=== PATIENT | female | born 1955 | race Caucasian/White ===

== ENCOUNTER 2023-04-03 09:00 | Outpatient (AMB) | payer MEDICARE, SELFPAY ==
--- NOTE | 2023-04-03 09:08 | MHC.PC.OV ---
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 Post menopausal: No Patient : No Allergies No Known Allergies Allergy (Verified 04/03/23 09:58) Medication List - Last Reconciled 04/03/23 by Britta Rodriguez MD fluticasone propionate 50 mcg/actuation (Flonase Allergy Relief) 1 spray intranasal DAILY Tobacco use date assessed: 04/03/23 Fall risk assessment: No Falls in past year Last assessed Fall Risk: 04/03/23 Dental Screening Dental Screen Date: 04/03/23 Did you have a dental visit in the last 12 months?: Yes Did you have a dental problem in the last 6 months where you did not have access to dental care?: No Was dental information given to patient?: Patient has dentist 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 She goes to [facility] for her routine Pap and pelvic exam, currently up-to-date , and states that she is up-to-date with her screening mammogram. She however is due for bone densty scan . She goes to betty [facility] for her routine colon cancer screening, now due. Sees Dr. Amezcua, at [facility] for her routine skin exam, recently seen and had several facial skin lesions removed [facility] Medical History (Updated 04/03/23 @ 10:12 by Britta Rodriguez MD) History of toe fracture History of dislocation of toe Post-menopause Surgical History (Updated 04/03/23 @ 10:13 by Britta Rodriguez MD) History of toe surgery History of Family History (Updated 04/03/23 @ 10:14 by Britta Rodriguez MD) Father Facial basal cell cancer Mother Facial basal cell cancer Colon cancer Social History Housing: House Patient Tobacco Use Status: Former Tobacco user (40 years ago) e-Cigarette/Vaping Use: Never Used service: No Current occupational status: employed Cognitive needs: No Hearing needs: No Vision needs: Yes Female Reproductive History Menstrual Menopause type: natural Age of menopause: 43 Total pregnancies: 4 Other: She goes to [facility] for her mammogram Questionnaire PHQ-9 Over the last 2 weeks, how often have you been bothered by any of the following problems? 1. Little interest or pleasure in doing things: not at all 2. Feeling down, depressed, or hopeless: not at all 3. Trouble falling or staying asleep, or sleeping too much: not at all 4. Feeling tired or having little energy: not at all 5. Poor appetite or overeating: not at all 6. Feeling bad about yourself - or that you are a failure or have let yourself or your family down: not at all 7. Trouble concentrating on things, such as reading the newspaper or watching television: not at all 8. Moving or speaking so slowly that other people could have noticed. Or the opposite - being so fidgety or restless that you have been moving around a lot more than usual: not at all 9. Thoughts that you would be better off or of hurting yourself in some way: not at all Total score: 0 79715 - PHQ-9 Billing: Yes Source: Developed by Drs. Umesh Grijalva, Chen Padgett, Ernesto Christianson and colleagues, with an educational sera from [employer]. Thrive Questionnaire Date Thrive assessed: 04/03/23 I am a: Patient What is your living situation today?: I have a steady place to live Within the past 12 months, did the food you bought not last and you didn't have the money to get more?: Never true Within the past 12 months, did you worry whether your food would run out before you got money to buy more?: Never true Do you have trouble paying for medicines?: No Do you have trouble getting transportation to medical appointments?: No Do you have trouble paying your heating and electricity bill?: No Do you have trouble taking care of your child, family member or friend?: No Do you have trouble with day-to-day activities such as bathing, preparing meals, shopping, managing finances, etc.?: No Are you currently unemployed and looking for a job?: No Are you interested in more education?: No AUDIT C Alcohol Use Questionnaire (AUDIT-C) 1. How often do you have a drink containing alcohol?: Monthly or less 2. How many drinks containing alcohol do you have on a typical day when you are drinking?: 1 or 2 Total Score: 1 ERICKA-7 AMB Questionnaire ERICKA-7 Date ERICKA - 7 assessed: 04/03/23 Feeling nervous, anxious, or on edge: 0 = Not at all Not being able to stop or control worryin = Several days Worrying too much about different things: 1 = Several days Trouble relaxin = Several days Being so restless that it is hard to sit still: 0 = Not at all Becoming easily annoyed or irritable: 0 = Not at all Feeling afraid as if something awful might happen: 0 = Not at all Total ERICKA-7 score (0-4 normal; 5-9 mild; 10-14 moderate; 15-21 severe): 3 Source: Developed by Drs. Umesh Grijalva, Chen Padgett, Ernesto Christianson and colleagues, with an educational sera from [employer]. ERICKA-7 Assessment Billing ERICKA-7 Assessment Tool: ERICKA-7 Assessment 48241 Review of Systems Const Denies body aches, Denies fatigue, Denies fever(s), Denies headache(s) and Denies weakness Eyes Denies change in vision ENT Denies dizziness, Denies headache(s), Denies nasal congestion, Denies nasal discharge and Denies sore throat Card Denies chest pain, Denies lightheadedness, Denies palpitations and Denies dyspnea Resp Denies chest congestion, Denies cough, Denies dyspnea and Denies wheezing GI Denies abdominal pain, Denies change in bowel habits and Denies heartburn Denies hematuria, Denies urinary frequency, Denies dysuria and Denies urinary urgency Musc Reports no additional complaints Skin/Breast Details: Sees Dr. Amezcua at [facility] Denies breast pain, Denies breast mass, Denies lesions and Denies rash Neuro Denies dizziness, Denies headache(s) and Denies weakness Psych Reports no additional complaints Endo Denies fatigue, Denies polydipsia, Denies polyuria and Denies palpitations Crescencio/Lymph Denies easy bleeding and Denies easy bruising Aller/Immun Denies seasonal rhinorrhea and Denies wheezing Physical exam (Primary Care) Vital Signs: Last Vital Signs Pulse 84 04/03/23 09:17 BP 132/80 04/03/23 09:17 Pulse Ox 97 04/03/23 09:17 Oxygen Delivery Method Room Air 04/03/23 09:17 BMI result Body Mass Index 30.4 Tobacco/Smoking Status: Tobacco use Status Tobacco use date assessed 04/03/23 04/03/23 09:26 Patient Tobacco Use Status Former Tobacco user (40 04/03/23 09:55 years ago) e-Cigarette/Vaping Use Never Used 04/03/23 09:26 PHQ-9: PHQ-9 Score PHQ-9: Total score 0 04/05/23 18:12 Thrive Assessment: Date of Thrive Assessment Date Thrive assessed 04/03/23 04/03/23 09:26 Const General: no acute distress and alert Orientation/consciousness: patient oriented x3 HENMT Head: Yes normocephalic and Yes atraumatic Ears: external ears normal, TM's normal bilaterally and EAC's normal General nose exam: Normal external nose present and No nasal discharge present Face and sinus: Yes face symmetric Mouth: Normal oral and palatal mucosa present, lip normal, tongue normal, oropharynx normal and moist mucous membranes Eyes General: appearance normal, both eyes and all related structures Eyelids: Yes eyelids normal Conjunctivae: conjunctivae normal Sclerae: sclerae normal Pupils: Equal, round and reactive pupils present EOM: EOMs intact bilaterally Neck Neck: Yes full ROM, Yes no lymphadenopathy and Yes supple Thyroid: Thyroid normal Resp Effort & Inspection: normal respiratory effort and able to speak in complete sentences Auscultation: clear to auscultation bilaterally Cardio Rate: regular rate Rhythm: regular rhythm Heart sounds: S1 normal heart sound present and S2 normal heart sound present GI Palpation (GI): Soft to palpation, nontender, no guarding and no masses Auscultation: normal bowel sounds General: Yes no CVA tenderness and Yes deferred (Goes to [facility] for her routine Pap and pelvic exam) Back/Spine/Pelvis Back: no CVA tenderness and No back tenderness Skin Other: Mild erythema on forehead, and small scar on submental area where she had a skin biopsy done recently Neuro General: patient oriented x3, gait normal, moves all extremities, Normal light touch and pain sensation, no focal motor deficits and CN's II-XI intact bilaterally Cranial nerves: Yes Equal, round and reactive pupils present Cognition (Neuro): normal cognition Gait exam (Neuro): Normal gait present Motor exam (neuro): 5/5 motor strength present throughout Extrem General: Yes normal to inspection, Yes full ROM, Yes no joint enlargement, Yes no pedal edema and Yes normal gait Psych Appearance: grossly normal and well kempt Mental Status: mental status grossly normal Speech and movement: Normal speech and movement present Affect: normal affect Attitude: cooperative Thought process: Normal thought process present Thought content: Normal thought content present Assessment and Plan Assessment & Plan (1) Annual visit for general adult medical examination with abnormal findings: Code(s): Z00.01 - Encounter for general adult medical examination with abnormal findings Plan: Will check appropriate labs. Continue with regular dental visit every 6 months and regular eye exams, at least every 2 years. Take adequate calcium in diet and vitamin-D 3 at 2000 IU per cap once a day, in addition to weight-bearing exercises to help maintain good muscle tone and weight control. Continue to do self-breast exam, and get yearly mammogram, currently goes to [facility]. Bone density scan ordered for screening for osteoporosis.. Referred to Dr. Pastrana for her screening colonoscopy. (2) Post-menopause: Code(s): Z78.0 - Asymptomatic menopausal state Plan: Advised to take adequate calcium from dietary sources, take vitamin-D 3 at least 2000 units daily, continue doing regular weight-bearing exercise, bone density scan ordered today for osteoporosis screening (3) Colon cancer screening: Code(s): Z12.11 - Encounter for screening for malignant neoplasm of colon Plan: Referred to Dr. Pastrana for her screening colonoscopy Orders: Orders XR DEXA axial skeleton 04/03/23 Z00.01 - Encounter for general adult medical examination with abnormal findings, Z78.0 - Asymptomatic menopausal state Vitamin D 25-OH Total 04/03/23 Z00.01 - Encounter for general adult medical examination with abnormal findings, Z13.1 - Encounter for screening for diabetes mellitus, Z13.220 - Encounter for screening for lipoid disorders, Z78.0 - Asymptomatic menopausal state Complete Blood Count Auto Diff 04/03/23 Z00.01 - Encounter for general adult medical examination with abnormal findings, Z13.1 - Encounter for screening for diabetes mellitus, Z13.220 - Encounter for screening for lipoid disorders, Z78.0 - Asymptomatic menopausal state Basic Metabolic Panel Fasting 04/03/23 Z00.01 - Encounter for general adult medical examination with abnormal findings, Z13.1 - Encounter for screening for diabetes mellitus, Z13.220 - Encounter for screening for lipoid disorders, Z78.0 - Asymptomatic menopausal state Lipid Panel 04/03/23 Z00.01 - Encounter for general adult medical examination with abnormal findings, Z13.1 - Encounter for screening for diabetes mellitus, Z13.220 - Encounter for screening for lipoid disorders, Z78.0 - Asymptomatic menopausal state Referrals Gastroenterology Referral Z00.01 - Encounter for general adult medical examination with abnormal findings, Z12.11 - Encounter for screening for malignant neoplasm of colon Coding Level of Care Code New Pt Prev Care >65yr (83183) Diagnoses Annual visit for general adult medical examination with abnormal findings Z00.01 Post-menopause Z78.0 Colon cancer screening Z12.11 Additional Codes ERICKA-7 Assessment Billing - ERICKA-7 Assessment Tool: ERICKA-7 Assessment 32474 ([id number])
[2023-04-03 09:17] VITALS: BP 132/80; PULSE 84; O2SAT 97; BMI 30.4
== END 2023-04-03 10:28 | disposition home or self-care (01) ==
PROVIDERS: PCP Internal Medicine; Visit Provider Internal Medicine
DX: Z00.01 Encounter for general adult medical examination with abnormal findings (principal); Z78.0 Asymptomatic menopausal state; Z12.11 Encounter for screening for malignant neoplasm of colon
CPT/HCPCS: 99387

== ENCOUNTER 2023-04-03 10:39 | Outpatient (REF) | payer BC, SELFPAY ==
[2023-04-03 15:37] LABS: Anion Gap 16 (12-20); Blood Urea Nitrogen 10 mg/dL (9-16); Calcium 9.1 mg/dL (8.4-10.2); Carbon Dioxide 25 mmol/L (22-29); Chloride 106 mmol/L (96-108); Cholesterol 199 mg/dL (<200); Estimated Glomerular Filt Rate > 60; Glucose Fasting 89 mg/dL (60-99); HDL Cholesterol 81 mg/dL (>40); LDL Cholesterol Calculated 103 mg/dL (<100); Potassium 3.9 mmol/L (3.3-5.1); Sodium 143 mmol/L (135-145); Triglycerides 78 mg/dL (<150); Vitamin D 25-OH Total 26.4 ng/mL (>30)
== END 2023-04-03 10:40 | disposition home or self-care (01) ==
LOC: HO.HMGCLDS 10:39
PROVIDERS: PCP Internal Medicine; Visit Provider Internal Medicine
DX: Z00.01 Encounter for general adult medical examination with abnormal findings (principal); Z13.220 Encounter for screening for lipoid disorders; Z13.1 Encounter for screening for diabetes mellitus; Z78.0 Asymptomatic menopausal state
CPT/HCPCS: 36415; 80048; 80061; 82306; 85025

== ENCOUNTER 2023-04-16 09:34 | Outpatient (REF) | payer MEDICARE, SELFPAY ==
--- NOTE | ~2023-04-16 | MM_ITS ---
EXAMINATION: BONE DENSITOMETRY CLINICAL INDICATION: Asymptomatic menopausal state. COMPARISON: This is the patient's baseline examination. TECHNIQUE: Using a [employer] DXA System (software version: 13.1) manufactured by [employer], dual-energy x-ray absorptiometry was performed of the lumbar spine and left hip. The images are of good technical quality. Summary results are attached. FINDINGS: AP SPINE L1-L4: BMD 1.345 g/cm2, Z-score 2.7, T-score 1.4, normal. LEFT FEMUR, NECK: BMD 0.835 g/cm2, Z-score 0.0, T-score -1.5, osteopenia. LEFT FEMUR, TOTAL: BMD 0.958 g/cm2, Z-score 0.8, T-score -0.4, normal. IDENTIFIED RISK FACTORS: Secondary osteoporosis (early menopause). HISTORY OF FRACTURE: None listed. MEDICATIONS: Calcium supplement and/or multivitamin. Vitamin D. MM/XR DEXA axial skeleton IMPRESSION: 1. DIAGNOSIS: Osteopenia based on the lowest T-score value of -1.5 in the femoral neck applying World Health Organization criteria. 2. 10-YEAR FRACTURE RISK PREDICTION, FRAX: Major osteoporotic fracture (clinical spine, forearm, hip or shoulder) 9.5%. Hip fracture 1.3%. 3. Treatment Recommendations: NOF guidelines recommend consideration for treatment in postmenopausal women and men age 50 and older presenting with the following: -A hip or vertebral (clinical or morphometric) fracture. -T-score less than or equal to -2.5 at the femoral neck or spine after appropriate evaluation to exclude secondary causes. -Low bone mass at the hip or spine and a 10-year fracture probability by FRAX of greater than or equal to 3% for hip fracture or greater than or equal to 20% for major osteoporotic fracture based on the [place] adapted WHO algorithm. 4. Other Recommendations: All treatment decisions require clinical judgment and consideration of individual patient factors, including patient preferences, comorbidities, previous drug use, risk factors not captured in the FRAX model (e.g. frailty, falls, vitamin D deficiency, increased bone turnover, interval significant decline in bone density) and possible under or overestimation of fracture risk by FRAX. Additional medical evaluation for secondary cause of low bone mineral density may be appropriate. FUTURE SCAN RECOMMENDATION: People with diagnosed cases of osteoporosis or at high risk for fracture should have regular bone mineral density tests. For patients eligible for Medicare, routine testing is allowed once every 2 years. The testing frequency can be increased to one year for patients who have rapidly progressing disease, those who are receiving or discontinuing medical therapy to restore bone mass, or have additional risk factors.
== END 2023-04-16 09:35 | disposition home or self-care (01) ==
LOC: HO.MAMMO 09:34
PROVIDERS: Visit Provider Internal Medicine
DX: Z13.820 Encounter for screening for osteoporosis (principal); Z78.0 Asymptomatic menopausal state
CPT/HCPCS: 77080

== ENCOUNTER 2023-12-02 07:07 | Day surgery (SDC) | payer MEDICARE, SELFPAY ==
[2023-11-30 14:26] VITALS: BMI 28.9
[2023-12-02 07:44] VITALS: BMI 28.8
[2023-12-02 08:00] VITALS: BP 177/70; PULSE 75; RESP 16; TEMP 36.3; O2SAT 97
[2023-12-02] MEDS: Lactated Ringers 1,000 ML 100 ML IVCONT (08:18)
--- NOTE | 2023-12-02 08:37 | P.CONAN_ITS ---
HPI - Anesthesia Eval Consult details Narrative: 68 yo F presenting for colonoscopy [facility] Active Problems Active Problems: All Active Problems Post-menopause (Acute) Past Medical History Medical History (Updated 04/13/23 @ 12:01 by Hayley Nunez) History of toe fracture History of dislocation of toe Post-menopause Family History Family History (System 04/13/23 @ 12:01 by Hayley Nunez) Father Facial basal cell cancer Mother Facial basal cell cancer Colon cancer Family history of problems with anesthesia: No Surgical History Surgical History (Updated 11/30/23 @ 14:26 by Carey Benitez RN) Hx of laparoscopy Hx of tonsillectomy H/O colonoscopy History of toe surgery History of History of Problems with Anesthesia: No Social History Social History (System 04/13/23 @ 12:01 by Hayley Nunez) Housing: House Patient Tobacco Use Status: Former Tobacco user e-Cigarette/Vaping Use: Never Used Use of substances other than those prescribed or required for medical reasons: No Are you DNR?: No Advance Directives: No Advance Directives Information Provided: Yes service: No Current occupational status: employed Cognitive needs: No Hearing needs: No Vision needs: Yes Meds Allergies Allergy/AdvReac Type Severity Reaction Status Date / Time No Known Allergies Allergy Verified 04/13/23 12:01 Active Medications: Current Medications Lactated Ringer's (Lr) 1,000 mls @ 100 mls/hr IVCONT .Q10H PHIL Last Admin: 12/02/23 08:18 Dose: 100 mls/hr Sodium Biphosphate/Sodium Phosphate (Sodium Phosphate,[place]-Dibasic 133 Ml Enema) 133 ml NV ONCE PRN PRN Reason: Poor Colonoscopy Prep Results Home Medications ?Medication ?Instructions ?Recorded ?Confirmed ?Last Taken ?Type fluticasone propionate 50 1 spray intranasal DAILY 04/03/23 04/03/23 Unknown History mcg/actuation nasal spray,suspension (Flonase Allergy Relief) Exam Exam Date and Time: December 02, 2023 0830 Height,Weight and Vital Signs: Height 5 ft 3.5 in Weight 74.899 kg Last Vital Signs Temp 97.4 F 12/02/23 08:00 Pulse 75 12/02/23 08:00 Resp 16 12/02/23 08:00 BP 177/70 H 12/02/23 08:00 Pulse Ox 97 12/02/23 08:00 O2 Del Method Room Air 12/02/23 08:00 Airway Mallampati Class: II TM Dist: >3cm Neck ROM: Full Loose/Missing/Broken Teeth: No Heart: S1S2 Lungs: CTAB Assessment and Plan Assessment Anesthesia Assessment: Anesthesia Plan Discussed and Chart Reviewed Final Anesthetic Review Family History of Problems with Anesthesia: No History of Problems with Anesthesia: No NPO: Yes ASA Class: I Final Preanesthetic Review: No Changes in Pt Med Stat, Meds/Allgs Chart Reviewed, Consent Obtained/Reviewed and Anes Risks/Benef Reviewed Patient Risk: Low Procedure Risk: Low Anesthetic Plan Anesthetic Plan: MAC: and Agree w/ Assess. and Plan Disposition: Standard PACU
[2023-12-02 09:27] VITALS: BP 138/89; PULSE 91; RESP 16; TEMP 36.1; O2SAT 98
--- NOTE | 2023-12-02 09:27 | PM.OP ---
Brief Operative Note Date of Service: 12/02/23 Pre-op diagnosis: Screening Post-op diagnosis: other (Diverticulosis) Procedure: Colonoscopy to the cecum Surgeon: Umesh Pastrana MD Anesthesia: MAC Was an Respite Provider used for this Procedure?: No Estimated blood loss (mL): 0 Pathology: none sent Condition: stable Disposition: PACU
[2023-12-02 09:42] VITALS: BP 139/71; PULSE 66; RESP 16; TEMP 36.1; O2SAT 97
--- NOTE | 2023-12-02 09:57 | OP_ITS ---
DATE OF SERVICE: 12/02/2023 SURGEON: Umesh Pastrana MD INDICATIONS: The patient presents for evaluation of colorectal cancer screening. Full consent has been obtained from her for this, including risks of bleeding and perforation. PREOPERATIVE DIAGNOSIS: Colorectal cancer screening. POSTOPERATIVE DIAGNOSIS: PROCEDURE PERFORMED: Colonoscopy to the cecum. ESTIMATED BLOOD LOSS: COMPLICATIONS: ANESTHESIA: Monitored anesthesia care. ASSISTANTS: SPECIMENS: POSTOPERATIVE DIAGNOSES: Colorectal cancer screening, diverticulosis, and internal hemorrhoids. DESCRIPTION OF PROCEDURE: The patient was placed in the left lateral decubitus position. The digital rectal exam revealed no abnormalities. The Olympus video pediatric colonoscope was then entered into the rectum and advanced easily to the cecum. Once in the cecum, I did identify normal-appearing cecal pouch with appendiceal orifice and a normal-appearing ileocecal valve. The entire cecum and ileocecal valve appeared normal. There was transillumination of light deep in the right lower quadrant. The scope was slowly withdrawn assessing all mucosal surfaces carefully. Preparation was excellent. I did not visualize any sign of polyps, colitis, nor angiodysplasias. Some moderate amount of sigmoid diverticulosis. In the rectum, scope was retroflexed, visualizing internal hemorrhoids, but no other pathology. The rectal mucosa appeared normal. The scope was straightened and withdrawn from the patient. She tolerated the procedure well and was returned to the recovery area in stable condition. IMPRESSION: 1. Diverticulosis. 2. Internal hemorrhoids. PLAN: Given today's negative exam, 2 previous negative colonoscopies as well, and her age, I do not think she will need any further screening colonoscopies going forward. She will see me on a p.r.n. basis. MD MARCIA Villatoro/DENIS / [phone]
--- NOTE | 2023-12-03 06:26 | PC.NURSE ---
24hr update documented in paper chart.
--- OUTSIDE RECORDS SUMMARY | 2023-12-04 10:09 | XMS_ITS | Continuity of Care Document ---
Author Organization [facility] Address [address] [place] [address]- Care Team Providers Care Tours Captain Name Role Phone Not on Staff, PCP Primary Care Physician Unavail able Encounter 09/30/23 - 11/05/23 [facility] [address], [address] [place] [address]- Attending Physician: Birtta Rodriguez MD Admitting Physician: Britta Rodriguez MD Referring Physician: Britta Rodriguez MD Patient Care team information Care Team Personnel Name: Not on Staff, PCP Position: S Physician (General Medicine) Member Role: PCP
--- OUTSIDE RECORDS SUMMARY | 2023-12-04 10:09 | XMS_ITS | Continuity of Care Document ---
Author Organization [facility] [place] [place] Address [address] [place] [address]- Care Team Providers Care Rn Chronic Name Role Phone Not on Staff, PCP Primary Care Physician Unavail able Encounter 08/08/22 - 08/15/22 [facility] RADIOLOG[facility] AND [facility] [place] [place] [address], [address] [place] [address]- [place] Attending Physician: Jana Bacon MD Admitting Physician: Jana Bacon MD Referring Physician: Jana Bacon MD Results Radiology Reports * Exam Date Time Procedure Performing Provider Status 08/08/22 3:08 PM MM Digital Mammo Screening Terir Argueta; Auth (Verified) Notes: (MM Digital Mammo Screening) Reason For Exam: Z12.31 ROUTINE SCREENING RESULT: MM Digital Mammo Screening PROCEDURE: MM Digital Mammo Screening INDICATION: Screening for breast cancer. No known palpable abnormalities. COMPARISON: Multiple priors, the most recent 07/22/2021 TECHNIQUE: Full-field digital CC and MLO 3D tomosynthesis images of both breasts were acquired. Computer-aided detection (CAD) was utilized in the interpretation of this study. DENSITY: The breast tissue contains scattered areas of fibroglandular density. FINDINGS: No suspicious masses, suspicious microcalcifications, or areas of architectural distortion are seen in either breast to suggest malignancy. IMPRESSION: No mammographic evidence of malignancy. RECOMMENDATION: Routine mammographic screening BI-RADS: 1 (Negative) Lay letter mailed to patient WSN: [id number] Ordering Physician: Jana Bacon Dictated By: Robbi Noriega MD Dictated Date/Time: 08/08/22 5:19 pm Reviewed By: Robbi Noriega MD Signed By: Robbi Noriega MD Signed Date/Time: 08/08/22 5:19 pm Transcribed By: ACE Linoleum Layer Apprentice Date/Time: 08/08/22 5:17 pm Birads: MG Breast Screening * BHSPowerscribe , CIS S: TRANSCRIBE Robbi Noriega MD: VERIFY Event Display: Result: Authored Date: [id number] PROCEDURE: MM Digital Mammo Screening INDICATION: Screening for breast cancer. No known palpable abnormalities. COMPARISON: Multiple priors, the most recent 07/22/2021 TECHNIQUE: Full-field digital CC and MLO 3D tomosynthesis images of both breasts were acquired. Computer-aided detection (CAD) was utilized in the interpretation of this study. DENSITY: The breast tissue contains scattered areas of fibroglandular density. FINDINGS: No suspicious masses, suspicious microcalcifications, or areas of architectural distortion are seen in either breast to suggest malignancy. IMPRESSION: No mammographic evidence of malignancy. RECOMMENDATION: Routine mammographic screening BI-RADS: 1 (Negative) Lay letter mailed to patient WSN: [id number] Ordering Physician: Jana Bacon Dictated By: Robbi Noriega MD Dictated Date/Time: 08/08/22 5:19 pm Reviewed By: Robbi Noriega MD Signed By: Robbi Noriega MD Signed Date/Time: 08/08/22 5:19 pm Transcribed By: ACE Linoleum Layer Apprentice Date/Time: 08/08/22 5:17 pm Birads: Patient Care team information Care Team Personnel Name: Not on Staff, PCP Position: S Physician (General Medicine) Member Role: PCP
--- OUTSIDE RECORDS SUMMARY | 2023-12-04 10:09 | XMS_ITS | Continuity of Care Document ---
Author Organization [facility] RADIOLOG[facility] [place] [facility] [place] Address [address], [address] [place] [address]- Care Team Providers Care Box Blank Machine Feeder Name Role Phone Not on Staff, PCP Primary Care Physician Unavail able Encounter 07/22/21 - 07/29/21 [facility] RADIOLOG[facility] AND IMAGING [address], [address] [place] [address]- Attending Physician: Jana Bacon MD Admitting Physician: Jana Bacon MD Referring Physician: Jana Bacon MD
== END 2023-12-02 10:36 | disposition home or self-care (01) ==
PROVIDERS: PCP Internal Medicine; Visit Provider Internal Medicine
PROC: 0DJD8ZZ Inspection of Lower Intestinal Tract, Via Natural or Artificial Opening Endoscopic (ICD-10-PCS; CPT 45378; principal; 2023-12-02 08:30)
DX: Z12.11 Encounter for screening for malignant neoplasm of colon (principal); K57.30 Diverticulosis of large intestine without perforation or abscess without bleeding; K64.8 Other hemorrhoids; Z80.0 Family history of malignant neoplasm of digestive organs
CPT/HCPCS: G0105; J2704

== ENCOUNTER 2024-03-24 09:08 | Outpatient (AMB) | payer MEDICARE, SELFPAY ==
--- NOTE | 2024-03-24 09:18 | A.OFFPC_ITS ---
Vital Signs 03/24/24 09:19 Height 5 ft 3.5 in Weight 166 lb BMI 28.9 BP 140/90 H Blood Pressure Location Lt brachial Position Sitting Pulse 69 Pulse Source Pulse Oximeter Pulse Oximetry (%) 95 Oxygen Delivery Method Room Air Intake Visit Reasons: Regular Visit Intake Note: Pt is here today c/o vaginal itch and irritation Allergies No Known Allergies Allergy (Verified 03/27/24 16:28) Medication List - Last Reconciled 03/27/24 by Britta Rodriguez MD clobetasol 0.05% topical estradiol (Yuvafem) 10 mcg vaginal 2XW 30 days fluticasone propionate 50 mcg/actuation (Flonase Allergy Relief) 1 spray intranasal DAILY roflumilast 0.3% (Zoryve) appl topical BID Tobacco use date assessed: 03/24/24 Fall risk assessment: No Falls in past year Last assessed Fall Risk: 03/24/24 Dental Screening Dental Screen Date: 03/24/24 Did you have a dental visit in the last 12 months?: Yes Did you have a dental problem in the last 6 months where you did not have access to dental care?: Yes Was dental information given to patient?: Patient has dentist HPI Regular Visit HPI Details 68-year-old lady here today complaining of recurrent vaginal itching, and swelling in her labia which has been present now for the last several weeks. Patient states that she was on you have a fem before prescribed by her OBGYN but has been out of this medication for a while. Denies any abnormal vaginal discharge, no other complaints at present time [facility] History Psoriasis Scalp psoriasis History of toe fracture History of dislocation of toe Post-menopause Surgical History Hx of laparoscopy Hx of tonsillectomy H/O colonoscopy History of toe surgery History of Family History Father Facial basal cell cancer Mother Facial basal cell cancer Colon cancer Social History Housing: House Patient Tobacco Use Status: Former Tobacco user e-Cigarette/Vaping Use: Never Used service: No Current occupational status: employed Cognitive needs: No Hearing needs: No Vision needs: Yes Questionnaire PHQ-9 Over the last 2 weeks, how often have you been bothered by any of the following problems? 1. Little interest or pleasure in doing things: not at all 2. Feeling down, depressed, or hopeless: not at all 3. Trouble falling or staying asleep, or sleeping too much: not at all 4. Feeling tired or having little energy: not at all 5. Poor appetite or overeating: not at all 6. Feeling bad about yourself - or that you are a failure or have let yourself or your family down: not at all 7. Trouble concentrating on things, such as reading the newspaper or watching television: not at all 8. Moving or speaking so slowly that other people could have noticed. Or the opposite - being so fidgety or restless that you have been moving around a lot more than usual: not at all 9. Thoughts that you would be better off or of hurting yourself in some way: not at all Total score: 0 Depression Screening Interpretation: Negative Depression Screening Done: Yes 22338 - PHQ-9 Billing: Yes Source: Developed by Drs. Umesh Grijalva, Chen Padgett, Ernesto Christianson and colleagues, with an educational sera from [employer]. Thrive Questionnaire Date Thrive assessed: 03/24/24 I am a: Patient What is your living situation today?: I have a steady place to live Within the past 12 months, did the food you bought not last and you didn't have the money to get more?: Never true Within the past 12 months, did you worry whether your food would run out before you got money to buy more?: Never true Do you have trouble paying for medicines?: No Do you have trouble getting transportation to medical appointments?: No Do you have trouble paying your heating and electricity bill?: No Do you have trouble taking care of your child, family member or friend?: No Do you have trouble with day-to-day activities such as bathing, preparing meals, shopping, managing finances, etc.?: No Are you interested in more education?: No Please select the resources that you would like help with: None Currently or been in a relationship where the following occur: No concerns reported THRIVE Score: 0 AUDIT C Alcohol Use Questionnaire (AUDIT-C) 1. How often do you have a drink containing alcohol?: 4 or more times a week 2. How many drinks containing alcohol do you have on a typical day when you are drinking?: 1 or 2 3. How often do you have six or more drinks on one occasion?: Never Total Score: 4 ERICKA-7 AMB Questionnaire ERICKA-7 Date ERICKA - 7 assessed: 03/24/24 Feeling nervous, anxious, or on edge: 0 = Not at all Not being able to stop or control worryin = Not at all Worrying too much about different things: 0 = Not at all Trouble relaxin = Not at all Being so restless that it is hard to sit still: 0 = Not at all Becoming easily annoyed or irritable: 0 = Not at all Feeling afraid as if something awful might happen: 0 = Not at all Total ERICKA-7 score (0-4 normal; 5-9 mild; 10-14 moderate; 15-21 severe): 0 Source: Developed by Drs. Umesh Grijalva, Chen Padgett, Ernesto Christianson and colleagues, with an educational sera from [employer]. ERICKA-7 Assessment Billing ERICKA-7 Assessment Tool: ERICKA-7 Assessment 33018 Review of Systems Const All systems reviewed & are unremarkable except as noted in HPI and below Physical exam (Primary Care) Vital Signs: Last Vital Signs Pulse 69 03/24/24 09:19 BP 140/90 H 03/24/24 09:19 Pulse Ox 95 03/24/24 09:19 Oxygen Delivery Method Room Air 03/24/24 09:19 BMI result Body Mass Index 28.9 Tobacco/Smoking Status: Tobacco use Status Tobacco use date assessed 03/24/24 03/24/24 09:25 Patient Tobacco Use Status Former Tobacco user 03/24/24 09:25 e-Cigarette/Vaping Use Never Used 03/24/24 09:25 PHQ-9: PHQ-9 Score PHQ-9: Total score 0 03/24/24 10:10 Depression Screening Interpretation: Negative Thrive Assessment: Date of Thrive Assessment Date Thrive assessed 03/24/24 03/24/24 09:25 Currently or been in a relationship where the following occur: No concerns reported Const General: comfortable and no acute distress Orientation/consciousness: patient oriented x3 Other: Unable to inserts speculum and vaginal canal due to small opening General: Yes no CVA tenderness External Female Exam: normal appearance of the urethra, erythema (Bilateral labia) and external swelling (On labia bilateral) Back/Spine/Pelvis Back: no CVA tenderness Neuro General: patient oriented x3 Assessment and Plan Assessment & Plan (1) Pruritus of vagina: Code(s): N89.8 - Other specified noninflammatory disorders of vagina Plan: Prescription sent for you have a fem 10 mcg, 2 insert vaginally twice a week directed Orders: Orders Vitamin D 25-OH Total 03/24/24 Z13.1 - Encounter for screening for diabetes mellitus, Z13.220 - Encounter for screening for lipoid disorders, Z78.0 - Asymptomatic menopausal state Glucose Fasting 03/24/24 N89.8 - Other specified noninflammatory disorders of vagina, Z13.1 - Encounter for screening for diabetes mellitus, Z13.220 - Encounter for screening for lipoid disorders, Z78.0 - Asymptomatic menopausal state Lipid Panel 03/24/24 N89.8 - Other specified noninflammatory disorders of vagina, Z13.1 - Encounter for screening for diabetes mellitus, Z13.220 - Encounter for screening for lipoid disorders, Z78.0 - Asymptomatic menopausal state Medications: New estradiol (Yuvafem) 10 mcg vaginal 2XW 9 tabs 3RF 30 days Coding Level of Care Code Est Pt Level 3 (83845) Diagnoses Pruritus of vagina N89.8 Additional Codes ERICKA-7 Assessment Billing - ERICKA-7 Assessment Tool: ERICKA-7 Assessment 06619 ([id number])
[2024-03-24 09:19] VITALS: BP 140/90; PULSE 69; O2SAT 95; BMI 28.9
== END 2024-03-24 11:31 | disposition home or self-care (01) ==
PROVIDERS: PCP Internal Medicine; Visit Provider Internal Medicine
DX: N89.8 Other specified noninflammatory disorders of vagina (principal)

== ENCOUNTER → 2024-03-24 09:08 | Outpatient (BNVA) | payer MEDICARE, SELFPAY | PROVIDERS: PCP Internal Medicine; Visit Provider Internal Medicine | DX: N89.8 Other specified noninflammatory disorders of vagina (principal) | CPT/HCPCS: 96127; 99212 ==

== ENCOUNTER 2024-05-31 10:48 | Outpatient (REF) | payer MEDICARE, SELFPAY ==
[2024-05-31 15:20] LABS: Cholesterol 244 mg/dL (<200); Glucose Fasting 98 mg/dL (60-99); HDL Cholesterol 100 mg/dL (>40); LDL Cholesterol Calculated 127 mg/dL (<100); Triglycerides 88 mg/dL (<150); Vitamin D 25-OH Total 44.8 ng/mL (>30)
== END 2024-05-31 10:49 | disposition home or self-care (01) ==
LOC: HO.HMGCLDS 10:48
PROVIDERS: PCP Internal Medicine; Visit Provider Internal Medicine
DX: Z78.0 Asymptomatic menopausal state (principal); Z13.220 Encounter for screening for lipoid disorders; Z13.1 Encounter for screening for diabetes mellitus; N89.8 Other specified noninflammatory disorders of vagina
CPT/HCPCS: 36415; 80061; 82306; 82947

== ENCOUNTER 2024-06-01 11:53 | Outpatient (AMB) | payer MEDICARE, SELFPAY ==
[2024-06-01 12:11] VITALS: BP 144/80; PULSE 81; O2SAT 97; BMI 29.6
--- NOTE | 2024-06-01 12:11 | MHC.PC.OV ---
Vital Signs 06/01/24 12:11 Height 5 ft 3.5 in Weight 170 lb BMI 29.6 BP 144/80 H Blood Pressure Location Rt brachial Position Sitting Pulse 81 Pulse Source Pulse Oximeter Pulse Oximetry (%) 97 Oxygen Delivery Method Room Air Intake Visit Reasons: PE per Dr. Nuñez Intake Note: Pt is here today for her PE: last mammogram 01/07/24, bone density scan 04/16/23, colonoscopy 12/02/23 Allergies No Known Allergies Allergy (Verified 06/01/24 12:27) Medication List - Last Reconciled 06/01/24 by Britta Rodriguez MD clobetasol 0.05% topical estradiol (Yuvafem) 10 mcg vaginal 2XW 30 days fluticasone propionate 50 mcg/actuation (Flonase Allergy Relief) 1 spray intranasal DAILY roflumilast 0.3% (Zoryve) appl topical BID Tobacco use date assessed: 06/01/24 Fall risk assessment: No Falls in past year Last assessed Fall Risk: 06/01/24 Dental Screening Dental Screen Date: 06/01/24 Did you have a dental visit in the last 12 months?: No Did you have a dental problem in the last 6 months where you did not have access to dental care?: No Was dental information given to patient?: Patient has dentist HPI PE per Dr. Nuñez HPI Details The patient is a 68-year-old female presenting with an annual exam and . She has psoriasis and still complains of menopausal symptoms. Psoriasis primarily affects her scalp, and she is under the care of Dr. Amezcua for routine screening and management without recent detection of skin cancer. The patient reports a history of essential hypertension with current blood pressure elevated at 144 mmHg systolic, though she is not on antihypertensive medication. She uses clobetasol and Roflumilast for psoriasis. Additionally, she has been using Yuvafem vaginal tablets for menopausal symptoms but reports persistent itching and requests an alternative. The patient denies any history of breast cancer. She underwent a bone density scan last year, revealing osteopenia in the left hip, and plans to reassess in 2024. She mentioned a history of scoliosis discovered later in life, and a wrist fracture from a skiing accident in her 20s. - Mammogram up to date, next due in December of next year. - Fully vaccinated for shingles. - Pneumonia vaccination status uncertain; potential need to confirm after age 65. - Recently performed bone density scan showing normal spine and thigh, with osteopenia in the left hip. - Routine flu shots; received locations not updated in medical records. - Considers RSV vaccination unnecessary due to lack of comorbidities and prior health status. - History of three COVID-19 vaccinations, with no history of COVID illness. PFSH Medical History (Updated 06/01/24 @ 12:55 by Britta Rodriguez MD) Vaginal pruritus Osteopenia of left femoral neck Psoriasis Scalp psoriasis History of toe fracture History of dislocation of toe Post-menopause Surgical History Hx of laparoscopy Hx of tonsillectomy H/O colonoscopy History of toe surgery History of Family History Father Facial basal cell cancer Mother Facial basal cell cancer Colon cancer Social History Housing: House Patient Tobacco Use Status: Former Tobacco user e-Cigarette/Vaping Use: Never Used service: No Current occupational status: employed Cognitive needs: No Hearing needs: No Vision needs: Yes Questionnaire PHQ-9 Over the last 2 weeks, how often have you been bothered by any of the following problems? Depression Screening Interpretation: Negative Depression Screening Done: Yes Source: Developed by Drs. Umesh Grijalva, Chen Padgett, Ernesto Christianson and colleagues, with an educational sera from [employer]. Thrive Questionnaire Date Thrive assessed: 03/24/24 I am a: Patient What is your living situation today?: I have a steady place to live Within the past 12 months, did the food you bought not last and you didn't have the money to get more?: Never true Within the past 12 months, did you worry whether your food would run out before you got money to buy more?: Never true Do you have trouble paying for medicines?: No Do you have trouble getting transportation to medical appointments?: No Do you have trouble paying your heating and electricity bill?: No Do you have trouble taking care of your child, family member or friend?: No Do you have trouble with day-to-day activities such as bathing, preparing meals, shopping, managing finances, etc.?: No Are you currently unemployed and looking for a job?: No Are you interested in more education?: No Please select the resources that you would like help with: None Currently or been in a relationship where the following occur: No concerns reported THRIVE Score: 0 AUDIT C Alcohol Use Questionnaire (AUDIT-C) 1. How often do you have a drink containing alcohol?: 4 or more times a week 2. How many drinks containing alcohol do you have on a typical day when you are drinking?: 1 or 2 3. How often do you have six or more drinks on one occasion?: Never Total Score: 4 ERICKA-7 AMB Questionnaire ERICKA-7 Date ERICKA - 7 assessed: 03/24/24 Source: Developed by Drs. Umesh Grijalva, Chen Padgett, Ernesto Christianson and colleagues, with an educational sera from [employer]. Review of Systems Const Denies body aches, Denies difficulty sleeping, Denies fatigue, Denies fever(s), Denies headache(s), Denies lethargy and Denies weakness Eyes Denies change in vision, Denies eye discharge and Denies itchy eyes ENT Denies dizziness, Denies headache(s), Denies nasal congestion, Denies nasal discharge and Denies sore throat Card Denies chest pain, Denies lightheadedness, Denies palpitations and Denies dyspnea Resp Denies chest congestion, Denies cough, Denies dyspnea and Denies wheezing GI Denies abdominal pain, Denies change in bowel habits and Denies heartburn Denies hematuria, Denies urinary frequency, Denies dysuria and Denies urinary urgency Musc Reports no additional complaints Skin/Breast Denies breast pain, Denies breast mass, Denies lesions and Denies rash Neuro Denies dizziness, Denies headache(s) and Denies weakness Psych Reports no additional complaints Endo Denies fatigue, Denies polydipsia, Denies polyuria and Denies palpitations Crescencio/Lymph Denies easy bruising Aller/Immun Denies itchy eyes, Denies seasonal rhinorrhea and Denies wheezing Physical exam (Primary Care) Vital Signs: Last Vital Signs Pulse 81 06/01/24 12:11 BP 144/80 H 06/01/24 12:11 Pulse Ox 97 06/01/24 12:11 Oxygen Delivery Method Room Air 06/01/24 12:11 BMI result Body Mass Index 29.6 Tobacco/Smoking Status: Tobacco use Status Tobacco use date assessed 06/01/24 06/01/24 12:14 Patient Tobacco Use Status Former Tobacco user 06/01/24 12:14 e-Cigarette/Vaping Use Never Used 06/01/24 12:14 Depression Screening Interpretation: Negative Thrive Assessment: Date of Thrive Assessment Date Thrive assessed 03/24/24 06/01/24 12:14 Currently or been in a relationship where the following occur: No concerns reported Advance Care Planning discussion: Completed/Scanned Date of discussion: 06/01/24 Who was present: Patient Forms completed: Health Care Proxy Time spent: 16-45 minutes Actual minutes spent: 2 Const General: comfortable and no acute distress Orientation/consciousness: patient oriented x3 HENMT Head: Yes normocephalic Ears: external ears normal General nose exam: Normal external nose present Face and sinus: Yes sinuses nontender and Yes face symmetric Mouth: Normal oral and palatal mucosa present, oropharynx normal and moist mucous membranes Eyes General: appearance normal, both eyes and all related structures Neck Neck: Yes full ROM, Yes no lymphadenopathy and Yes supple Chest Breast/axilla inspection: normal inspection of the breasts Breast/axilla palpation: normal palpation of the breasts Resp Effort & Inspection: normal respiratory effort and able to speak in complete sentences Auscultation: clear to auscultation bilaterally Cardio Rate: regular rate Rhythm: regular rhythm Heart sounds: S1 normal heart sound present and S2 normal heart sound present Bruits: no abdominal aortic bruits GI Inspection: Yes normal to inspection Palpation (GI): No Abdominal aortic bruit present, Soft to palpation, nontender, no guarding and no masses General: Yes no CVA tenderness Back/Spine/Pelvis Back: no CVA tenderness Skin General skin exam: no rashes or lesions noted Neuro General: patient oriented x3, gait normal, tone normal, moves all extremities and no focal motor deficits Extrem General: Yes full ROM, Yes no joint enlargement, Yes no pedal edema and Yes normal gait Psych Appearance: grossly normal and well kempt Speech and movement: Normal speech and movement present Affect: normal affect Attitude: cooperative Thought process: Normal thought process present Results Reviewed Results Reviewed: Name: Lenore Gibson Age/Sex: 68/F : 1955 Unit#: [id number] Attend Dr: Britta Rodriguez MD Re05/31/24 Status: DEP REF Location: [facility] Disch: SPEC : [id number] QUYEN: 05/31/24 STATUS: COMP REQ : [id number] RECD: 05/31/[address]: Britta Rodriguez MD COMP: 05/31/24 ENTERED: 05/31/[address]: ORDERED: Glu Fasting, Lipid Panel, Vitamin D 25-OH Test Result Flag Reference FBS 98 60-99 mg/dL Triglyceride 88 <150 mg/dL Desirable Triglyceride: less than 150 mg/dL Borderline High Triglyceride 150-199 mg/dL High Triglyceride: 200-499 mg/dL Very High Triglyceride: greater than or equal to 5OO mg/dL Cholesterol 244 H <200 mg/dL Desirable Cholesterol: less than 200 mg/dL Borderline High Cholesterol: 200-239 mg/dL High Cholesterol: greater than 239 mg/dL LDL Calculated 127 H <100 mg/dL Desirable LDL: less than 100 mg/dL Near Optimal/Above Optimal LDL: 110-129 mg/dL Borderline High LDL: 130-159 mg/dL High LDL: 160-189 mg/dL Very High LDL: greater than or equal to 190 mg/dL HDL 100 >40 mg/dL Desirable HDL: greater than 40 mg/dL Note: This HDL assay may give artificially low results in patients with liver disease. Vit D 25-OH Tot 44.8 >30 ng/mL Health Based Reference Values* < 20 ng/mL Deficient 20-30 ng/mL Insufficient > 30 ng/mL Sufficient Coding Level of Care Code Est Pt Prev Care >65y(11746) Diagnoses Annual visit for general adult medical examination with abnormal findings Z00.01 Post-menopause Z78.0 Osteopenia of left femoral neck M85.852 Vaginal pruritus N89.8 Psoriasis L40.9 Scalp psoriasis L40.9 Advanced directives, counseling/discussion Z71.89 Additional Codes Vital Signs *Quality* - Advance Care Planning discussion: Completed/Scanned ([id number]) Vital Signs *Quality* - Time spent: 16-45 minutes ([id number]) Assessment & Plan Assessment & Plan (1) Annual visit for general adult medical examination with abnormal findings: Code(s): Z00.01 - Encounter for general adult medical examination with abnormal findings (2) Post-menopause: Code(s): Z78.0 - Asymptomatic menopausal state Category: Medical (3) Osteopenia of left femoral neck: Code(s): M85.852 - Other specified disorders of bone density and structure, left thigh Category: Medical (4) Vaginal pruritus: Code(s): N89.8 - Other specified noninflammatory disorders of vagina Category: Medical (5) Psoriasis: Comment: On left elbow, sees Dr. Amezcua Code(s): L40.9 - Psoriasis, unspecified Category: Medical (6) Scalp psoriasis: Comment: She sees Dr. Ken Amezcua Code(s): L40.9 - Psoriasis, unspecified Category: Medical (7) Advanced directives, counseling/discussion: Code(s): Z71.89 - Other specified counseling Plan: Initiated the conversation about Advanced Directives. Advanced Directives help patients prepare for current and future decisions about their medical treatment and place of care. Discussed with patient that it is a process where a patients current condition and prognosis are reviewed, their wishes for information regarding their illness are elicited, and likely medical dilemmas are presented and options discussed. Healthcare proxy form completed today. The form can be amended as needed, reviewed yearly and make changes as needed Plan During the consultation, we reviewed the patient?s current management for psoriasis and agreed to continue the topical regimen with clobetasol and Roflumilast. For menopausal symptoms, I suggested switching to a more potent estradiol cream, which the patient agreed to try. We discussed the importance of maintaining blood pressure below 130/90 mmHg and addressed dietary changes to lower cholesterol levels, given the recent increase. We reviewed her bone density results and scheduled a follow-up in 2024, emphasizing the importance of monitoring osteopenia to prevent progression to osteoporosis. I outlined the need for continued health maintenance, including arranging for flu shot documentation and evaluating possible pneumococcal vaccination records. - Start using the estradiol cream as prescribed and discontinue the current formulation. - Implement dietary changes to include low-saturated fat options to manage cholesterol. - Monitor blood pressure at home and report readings above 130/90 mmHg. - Continue with the current psoriasis medications and appointments with Dr. Hylton. - Schedule a follow-up mammogram for December of next year and coordinate OBGYN consult for post-menopausal management in July. - Ensure all vaccinations are up to date; confirm pneumococcal status with previous provider records. Patient was informed and verbally consented to the use of an ambient scribe for clinic note documentation during this visit. 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
== END 2024-06-01 14:49 | disposition home or self-care (01) ==
PROVIDERS: PCP Internal Medicine; Visit Provider Internal Medicine
DX: Z00.01 Encounter for general adult medical examination with abnormal findings (principal); Z78.0 Asymptomatic menopausal state; M85.852 Other specified disorders of bone density and structure, left thigh; N89.8 Other specified noninflammatory disorders of vagina; L40.9 Psoriasis, unspecified; Z71.89 Other specified counseling

== ENCOUNTER → 2024-06-01 11:53 | Outpatient (BNVA) | payer MEDICARE, SELFPAY | PROVIDERS: PCP Internal Medicine; Visit Provider Internal Medicine | DX: Z00.01 Encounter for general adult medical examination with abnormal findings (principal); M85.852 Other specified disorders of bone density and structure, left thigh; N89.8 Other specified noninflammatory disorders of vagina; L40.9 Psoriasis, unspecified; Z71.89 Other specified counseling; Z78.0 Asymptomatic menopausal state | CPT/HCPCS: 99397; 99497 ==

== ENCOUNTER 2025-05-23 10:19 | Outpatient (REF) | payer MEDICARE, SELFPAY ==
--- OUTSIDE RECORDS SUMMARY | 2023-12-02 03:30 | XMS_ITS ---
Author Organization [facility] Address [address] [place] [address] Care Team Providers Care Clearance Diver Name Role Phone Jennifer VICTOR, Britta Primary Care Provider Umesh Barrientos [phone] REASON FOR VISIT screening Problems Problem Type SNOMED Code ICD Code Onset Dates Problem Status W/U Status Risk Notes Problem Diverticular disease of colon ([id number]) Diverticulosis of large intestine without perforation or abscess without bleeding (K57.30) Active confirmed Encounters Encounter Location Date Provider Diagnosis [facility] Outpatient [address] [place] [address] [phone] 12/02/2023 Umesh Pastrana Encounter for scre ening colonoscopy Z12.11 ; Diverticulosis of large intestine without perforation or abscess without bleeding K57.30 and Internal hemorrhoids K64.8 Assessments Encounter Date Diagnosis (ICD Code) Assessment Notes Treatment Notes Treatment Clinical Notes Section Notes 12/02/2023 Encounter for screening colonoscopy (ICD-10 - Z12.11) 12/02/2023 Diverticulosis of large intestine without perforation or abscess without bleeding (ICD-10 - K57.30) 12/02/2023 Internal hemorrhoids (ICD-10 - K64.8) Plan Of Treatment No Information Progress Notes * ZOILA LARSONENDOB:0 1955 (69 yo F)Acc No.[id number]:12/02/2023 COLON WITH MAC Patient: Pamela GRIJALVA GIFTY HILL Provider: Asia Pastrana MD :1955 A ge:68 Y S ex:Female Date:12/02/2023 Address:[address] [place] [address], [phone] Pcp:Britta Rodriguez MD Subjective: * Chief Complaints: * S creening Assessment: * Assessment: 1. E ncounter for screening colonoscopy - Z12.11 (Primary) 2 . D iverticulosis of large intestine without perforation or abscess without bleeding - K57.30 3 .?Internal hemorrhoids - K64.8 Plan: * Procedure Codes: G 0121 COLOREC CNCR SCR;COLNSCPY NO HI [id number] INTRVL 3+YRS PTS CLNSCP DOCD, Modifiers: 8P 0528F RCMND FLW-UP 10 YRS DOCD, Modifiers: 1P Billing Information: * Procedure Codes: G0121 COLOREC CNCR SCR;COLNSCPY NO HI RSK. 0529F INTRVL 3+YRS PTS CLNSCP DOCD. Modifiers: 8P 0528F RCMND FLW-UP 10 YRS DOCD. Modifiers: 1P * The named appointment provid er may or may not be the originator of this progress note, and it is not deemed complete until electronically signed by the appointment provider. Sign off status: Pending * Provider: Asia Pastrana MD Date: 0 12/02/2023 Generated for Surekha jimenez/Darryl/Steveitting on: 07/23/2024 12:42 PM EST
--- NOTE | ~2025-05-23 | MM_ITS ---
EXAMINATION: DXA BONE DENSITY AXIAL HISTORY: Z78.0 - Asymptomatic menopausal state TECHNIQUE: Virtualmin Dual energy absorptiometry (DEXA) of the lumbar spine, total left hip, and femoral neck was performed. COMPARISON: Comparison is made with the prior examination dated 04/16/2023. FINDINGS: The bone mineral density of the lumbar spine is 1.324 g/cm2, corresponding to a T-score of 1.2, and a Z-score of 2.5. This is indicative of normal bone mineral density. This represents a BMD change of -1.6% compared to the prior exam. This is not statistically significant. The bone mineral density of the left total hip is 0.900 g/cm2, corresponding to a T-score of -0.9, and a Z-score of 0.4. This is indicative of normal bone mineral density. This represents a BMD change of -6.1% compared to the prior exam. This is statistically significant. The bone mineral density of the left femoral neck is 0.758 g/cm2, corresponding to a T-score of -2.0, and a Z-score of 0.5. This is indicative of osteopenia. This represents a BMD change of -9.2% compared to the prior exam. FRACTURE RISK: The FRAX index suggests a ten year probability of major osteoporotic fracture of 12.1%, and of hip fracture 2.5%. MM/XR DEXA axial skeleton IMPRESSION: Based on bone mineral density, and according to World Health Organization (WHO) criteria, the diagnosis is consistent with osteopenia. Statistically, 68% of repeat scans fall within 1 SD (+/- 0.010 g/cm2 for AP spine L1-L4) and 1 SD (+/- 0.012 g/cm2 for femur total) FRAX is a trademark of the [employer]'s [employer] [facility] Met[employer], a World Health Organization (WHO) Collaborating Center. Electronically signed by: Umesh Ken MD 05/23/2025 10:46 AM [facility]
--- OUTSIDE RECORDS SUMMARY | 2025-05-23 12:42 | XMS_ITS | Patient Health Record ---
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 Section Notes: Nonsmoker; 2 drinks daily Nonsmoker; 2 drinks daily Problems Problem Type SNOMED Code ICD Code Onset Dates Problem Status W/U Status Risk Notes Problem Colon cancer screening (939643903) Colon cancer screening (Z12.11) Active confirmed Problem Pre-procedure evaluation check (321772164) Encounter for other preprocedural examination (Z01.818) Active confirmed Problem Diverticular disease of colon (563095988) Diverticulosis of large intestine without perforation or abscess without bleeding (K57.30) Active confirmed Plan Of Treatment Future Test Test Name Order Date COLONOSCOPY 06/30/2013 COLONOSCOPY 08/26/2023 Insurance Providers Payer Name Payer Address Payer Phone Subscriber Number Group Number Insured Name Patient Relationship to Insured Coverage Start Date Coverage End Date [facility] [address] [place], [place] [id number] [phone] [id number] GIFTY LARSON Self - patient is the insured Medical (General) History Medical History History ICD Code Colonoscopy 04/21/2003--hyperplastic tray yp only Denies NE,DM,CVA,Lung disease,renal dise ase Negative colonoscopy in 08/2013 Surgical History Surgery Date(Month/Year) x 2 Tonsillectomy 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
--- OUTSIDE RECORDS SUMMARY | 2025-05-23 12:42 | XMS_ITS | Clinical Summary ---
Author Organization [employer] Address [address] [place] [address] [address] [place] [address] Care Team Providers Care Instrument Repairer Name Role Phone Unavailable Primary Care Provider Unavailabl e Social History Tobacco Use Types Packs/Day Years Used Date Smoking Tobacco: Never Assessed Comments Unknown Sex and Gender Information Value Date Recorded Sex Assigned at Not on file Legal Sex Female 8:36 PM EDT Gender Identity Not on file Sexual Orientation Not on file Plan of Treatment Health Maintenance Due Date Last Done Comments CT Colonography 1955 Depression Screening 1955 FIT DNA/Cologuard 1955 FIT 1955 FOBT 1955 Sigmoidoscopy 1955 Alcohol/Substance Use Screening 1965 Tobacco Screening 1967 Pneumococcal Vaccine: 50+ Years (2 of 2 - PCV) 04/23/2019 04/23/2018 Colonoscopy 09/01/2023 08/31/2013 Colorectal Cancer Screening 09/01/2023 Mammogram 08/08/2024 08/08/2022 COVID-19 Vaccine ( - 2024-2 6 season) 2025 Influenza Vaccine (#1) 2025 04/23/2018 DTaP/Tdap/Td Vaccines (2 - T d or Tdap) 04/23/2028 04/23/2018 RSV Patients and Patients Aged 60 years or older (1 - 1-dose 75+ series) 2028 Zoster Vaccines Completed 12/14/2018, 08/28/2018 HIB Vaccines Aged Out No longer eligi ble based on patient's age to complete this topic HPV Vaccines Aged Out No longer eligi ble based on patient's age to complete this topic Hepatitis A Vaccines Aged Out No long er eligible based on patient's age to complete this topic Hepatitis B Vaccines Aged Out No long er eligible based on patient's age to complete this topic IPV Vaccines Aged Out No longer eligi ble based on patient's age to complete this topic Meningococcal B Vaccine Aged Out No l onger eligible based on patient's age to complete this topic Meningococcal Vaccine Aged Out No ambrosio hilda eligible based on patient's age to complete this topic RSV under 20 months Aged Out No longe r eligible based on patient's age to complete this topic Rotavirus Vaccines Aged Out No longer eligible based on patient's age to complete this topic Procedures Procedure Name Priority Date/Time Associated Diagnosis Comments BI MAMMOGRAM SCREENING TOMOSYNTHESIS BILATERAL Routine 08/08/2022 2:57 PM EST COLONOSCOPY Routine 08/31/2013 12:00 AM EST from Last 3 Months or Most Recently Relevant to Health Maintenance Results * BI Mammogram Screening Tomosynthesis Bilateral (08/08/2022 2:57 PM EST) Anatomical Region Laterality Modality Breast Bilateral Mammography 08/08/2022 2:57 PM EST Narrative 08/08/2022 5:22 PM EST PROCEDURE: MM Digital Mammo Screening INDICATION: Screening [...] (Negative) Lay letter mailed to patient WSN: [id number] Ordering Physician: Jana Bacon Dictated By: Robbi Noriega MD Dictated Date/Time: 08/08/22 5:19 pm Reviewed By: Robbi Noriega MD Signed By: Robbi Noriega MD Signed Date/Time: 08/08/22 5:19 pm Transcribed By: ACE Airplane And Engine Inspector Date/Time: 08/08/22 5:17 pm Birads: Procedure Note Donotuseinterpreter, Image - 08/08/2022 PROCEDURE: MM Digital Mammo Screening INDICATION: Screening for breast cancer. No known palpableabnormalities. COMPARISON: Multiple priors, the most recent 07/22/2021 TECHNIQUE: Full-field digital CC and MLO 3D tomosynthesis images of bothbreasts were acquired. Computer-aided detection (CAD) was utilized in theinterpretation of this study. DENSITY: The breast tissue contains scattered areas of fibroglandulardensity. FINDINGS: No suspicious masses, suspicious microcalcifications, or areasof architectural distortion are seen in either breast to suggestmalignancy. IMPRESSION: No mammographic evidence of malignancy. RECOMMENDATION: Routine mammographic screening BI-RADS: 1 (Negative) Lay letter mailed to patient WSN: [id number] Ordering Physician: Jana Bacon Dictated By: Robbi Noriega MD Dictated Date/Time: 08/08/22 5:19 pm Reviewed By: Robbi Noriega MD Signed By: Robbi Noriega MD Signed Date/Time: 08/08/22 5:19 pm Transcribed By: ACE Airplane And Engine Inspector Date/Time: 08/08/22 5:17 pm Birads: us Jana Bacon MD IMG BI PROCEDURES Final Result * COLONOSCOPY: [facility] (08/31/2013 12:00 AM EST) Anatomical Region Laterality Modality Endoscopy 08/31/2013 Narrative 08/31/2013 12:00 AM EST Refer to Fovea for result details Legacy Procedure: COLONOSCOPY: [facility] Procedure Note Provider, MD Maribeth - 10/23/2022 Refer to Fovea for result details Legacy Procedure: COLONOSCOPY: [facility] GASTRO[facility]OLOG[facility] us Historical Provider ENDOSCOPY PROCEDURE ORDER TARUN Final Result from Last 3 Months or Most Recently Relevant to Health Maintenance
== END 2025-05-23 10:20 | disposition home or self-care (01) ==
LOC: HO.MAMMO 10:19
PROVIDERS: PCP Internal Medicine; Visit Provider Internal Medicine
DX: M85.852 Other specified disorders of bone density and structure, left thigh (principal); Z78.0 Asymptomatic menopausal state
CPT/HCPCS: 77080

== ENCOUNTER → 2025-05-23 10:30 | Outpatient (BNV) | payer MEDICARE, SELFPAY | PROVIDERS: PCP Internal Medicine; Visit Provider Radiology Diagnostic Radiology | DX: E28.39 Other primary ovarian failure (principal) | CPT/HCPCS: 77080 ==

== ENCOUNTER 2025-06-12 10:15 | Outpatient (AMB) | payer MEDICARE, SELFPAY ==
--- NOTE | 2025-06-12 10:22 | MHC.PC.OV ---
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 Allergies No Known Allergies Allergy (Verified 06/12/25 10:55) Medication List - Last Reconciled 06/12/25 by Britta Rodriguez MD clobetasol 0.05% topical estradiol insert 1 - 10 mcg insert vaginally once daily for 2 weeks;then 1 - 10 mcg insert vaginally twice WEEKLY (every 3-4 days/same days each week) vaginal fluticasone propionate 50 mcg/actuation (Flonase Allergy Relief) 1 spray intranasal DAILY roflumilast 0.3% (Zoryve) appl topical BID triamcinolone acetonide 0.1% 1 appl topical DAILY Tobacco use date assessed: 06/12/25 Fall risk assessment: No Falls in past year Last assessed Fall Risk: 06/12/25 Dental Screening Dental Screen Date: 06/12/25 Did you have a dental visit in the last 12 months?: Yes Did you have a dental problem in the last 6 months where you did not have access to dental care?: No Was dental information given to patient?: Patient has dentist HPI PE HPI Details 69-year-old lady presents today for physical exam. She has history of psoriasis currently followed by Dr. Ken Amezcua, currently using Zoryve solution , and clobetasol 0.05% for scalp lesions . She has osteopenia left femoral neck as noted on last bone density scan done this year. No history of fractures . Takes vitamin D3 2000 units daily. She reports a burning pain in her left hip for the past two months, which disturbs her sleep as she typically sleeps on her left side, and can sometimes catch while walking. She denied any specific inciting event, recent long plane rides, or radiation of pain down the leg. She has tried [id number] medications like Aleve, Advil, and Tylenol without significant relief. Her blood pressure has been running high recently, noted at 138/89 previously. She has a family history of hypertension from both parents. Denies any headache, no chest pain or lightheadedness. Last cholesterol check in 2022 showed an increase in total cholesterol from 199 to 244 and LDL from 103 to 127. She is up-to-date with her screening colonoscopy had it done last year with no polyps seen, has been advised that she does not need another procedure done. However, her mother of colon cancer at age 84, and the patient would like still to have another colonoscopy in 9 years, at age 78. She has a family history of thyroid disease but no family history of diabetes. She has had vaccines for shingles and pneumonia. She declines the RSV vaccine. [facility] Medical History (Updated 06/12/25 @ 11:19 by Britta Rodriguez MD) Left hip pain Essential hypertension Dyslipidemia Vaginal pruritus Osteopenia of left femoral neck Psoriasis Scalp psoriasis History of toe fracture History of dislocation of toe Post-menopause Surgical History Hx of laparoscopy Hx of tonsillectomy H/O colonoscopy History of toe surgery History of Family History Father Facial basal cell cancer Mother Facial basal cell cancer Colon cancer Social History Housing: House Patient Tobacco Use Status: Former Tobacco user e-Cigarette/Vaping Use: Never Used service: No Current occupational status: employed Cognitive needs: No Hearing needs: No Vision needs: Yes Female Reproductive History Menstrual Other: sees Carol Ann Wright at [facility] in [place] , had pap done this year per pt Questionnaire PHQ-9 Over the last 2 weeks, how often have you been bothered by any of the following problems? 1. Little interest or pleasure in doing things: not at all 2. Feeling down, depressed, or hopeless: not at all 3. Trouble falling or staying asleep, or sleeping too much: not at all 4. Feeling tired or having little energy: not at all 5. Poor appetite or overeating: not at all 6. Feeling bad about yourself - or that you are a failure or have let yourself or your family down: not at all 7. Trouble concentrating on things, such as reading the newspaper or watching television: not at all 8. Moving or speaking so slowly that other people could have noticed. Or the opposite - being so fidgety or restless that you have been moving around a lot more than usual: not at all 9. Thoughts that you would be better off or of hurting yourself in some way: not at all Total score: 0 Depression Screening Interpretation: Negative Depression Screening Done: Yes 76629 - PHQ-9 Billing: Yes Source: Developed by Drs. Umesh Grijalva, Chen Padgett, Ernesto Christianson and colleagues, with an educational sera from [employer]. Thrive Questionnaire Date Thrive assessed: 06/12/25 I am a: Patient What is your living situation today?: I have a steady place to live Within the past 12 months, did the food you bought not last and you didn't have the money to get more?: Never true Within the past 12 months, did you worry whether your food would run out before you got money to buy more?: Never true Do you have trouble paying for medicines?: No Do you have trouble getting transportation to medical appointments?: No Do you have trouble paying your heating and electricity bill?: No Do you have trouble taking care of your child, family member or friend?: No Do you have trouble with day-to-day activities such as bathing, preparing meals, shopping, managing finances, etc.?: No Are you currently unemployed and looking for a job?: No Are you interested in more education?: No Please select the resources that you would like help with: None Currently or been in a relationship where the following occur: No concerns reported THRIVE Score: 0 AUDIT C Alcohol Use Questionnaire (AUDIT-C) 1. How often do you have a drink containing alcohol?: 4 or more times a week 2. How many drinks containing alcohol do you have on a typical day when you are drinking?: 1 or 2 3. How often do you have six or more drinks on one occasion?: Never Total Score: 4 Score Reviewed/Action Taken: Yes ERICKA-7 AMB Questionnaire ERICKA-7 Date ERICKA - 7 assessed: 06/12/25 Feeling nervous, anxious, or on edge: 0 = Not at all Not being able to stop or control worryin = Not at all Worrying too much about different things: 0 = Not at all Trouble relaxin = Not at all Being so restless that it is hard to sit still: 0 = Not at all Becoming easily annoyed or irritable: 0 = Not at all Feeling afraid as if something awful might happen: 0 = Not at all Total ERICKA-7 score (0-4 normal; 5-9 mild; 10-14 moderate; 15-21 severe): 0 Source: Developed by Drs. Umesh Grijalva, Chen Padgett, Ernesto Christianson and colleagues, with an educational sera from [employer]. ERICKA-7 Assessment Billing ERICKA-7 Assessment Tool: ERICKA-7 Assessment 69657 Review of Systems Narrative Review of Systems - General: Reports weight gain. - Cardiovascular: Denies chest pain. - Musculoskeletal: Reports a burning pain in the left hip for a couple of months, aggravated by lying on her left side and occasionally catching with walking. She can squat, bend, and play golf. - Neurological: Denies headache and lightheadedness or dizziness. - Integumentary: Reports an itchy rash with welts on an extremity for two weeks, which is now improving. Denies burning. History of psoriasis and a vaginal condition that was treated with clobetasol. Denies any rash on the trunk. - Gastrointestinal: Reports occasional heartburn. Denies abdominal pain. - Genitourinary: Denies urinary leakage. Constitution Reports no additional complaints Eyes no change in vision ENT Reports no additional complaints, Denies dysphagia and Denies odynophagia Cardiology Reports no additional complaints Respiratory Reports no additional complaints GI Denies abdominal pain, Denies belching, Denies melena, Denies bloating, Denies change in bowel habits, Denies dysphagia, Denies excessive flatus, Denies dyspepsia, Denies heartburn, Denies diarrhea, Denies loose stools, Denies nausea, Denies odynophagia and Denies vomiting Reports no additional complaints. sees Carol Ann Wright at [facility] in [place] , had pap done this year per pt Muscular no additional complaints Skin/Breast Denies breast swelling, Denies breast pain, Denies breast mass and Denies rash Neurology Reports no additional complaints Psychiatry Reports no additional complaints Endocrine Reports no additional complaints Crescencio/Lymph Reports no additional complaints Aller/Immun Reports no additional complaints Physical exam (Primary Care) Vital Signs: Last Vital Signs Temp 98.6 F 06/12/25 10:33 Pulse 75 06/12/25 10:33 Resp 16 06/12/25 10:33 BP 160/90 H 06/12/25 10:33 Pulse Ox 97 06/12/25 10:33 Oxygen Delivery Method Room Air 06/12/25 10:33 BMI result Body Mass Index 31.6 Tobacco/Smoking Status: Tobacco use Status Tobacco use date assessed 06/12/25 06/12/25 10:24 Patient Tobacco Use Status Former Tobacco user 06/12/25 10:24 e-Cigarette/Vaping Use Never Used 06/12/25 10:24 PHQ-9: PHQ-9 Score PHQ-9: Total score 0 06/12/25 11:24 Depression Screening Interpretation: Negative Thrive Assessment: Date of Thrive Assessment Date Thrive assessed 06/12/25 06/12/25 10:24 Currently or been in a relationship where the following occur: No concerns reported Narrative Physical Exam - Vital Signs: Blood pressure 160/90 mmHg initially, and 170/90 on recheck. - Cardiovascular: Regular rate, regular rhythm, S1/S2 heard, no murmurs noted on auscultation. - Respiratory: Lungs are clear to auscultation bilaterally. - Abdomen: Nontender to palpation throughout. - Musculoskeletal: No tenderness in knees. Left hip exam reveals tenderness to palpation with pressure during flexion maneuver. - Skin: Examination reveals two raised welts and spots on one extremity. No rash present on the trunk. Const General: comfortable, no acute distress, alert and well groomed Orientation/consciousness: patient oriented x3 [facility] Head: Yes normocephalic Ears: hearing grossly normal bilaterally, external ears normal, TM's normal bilaterally and EAC's normal General nose exam: Normal external nose present Face and sinus: Yes face symmetric Mouth: Normal oral and palatal mucosa present and moist mucous membranes Eyes General: appearance normal, both eyes and all related structures Neck Neck: Yes full ROM, Yes no lymphadenopathy and Yes supple Thyroid: Thyroid normal (Nonpalpable) Chest Breast/axilla palpation: normal palpation of the breasts General: Yes no CVA tenderness Back/Spine/Pelvis Back: no CVA tenderness and No back tenderness Neuro General: patient oriented x3, gait normal, moves all extremities and no focal motor deficits Extrem General: Yes full ROM, Yes no joint enlargement, Yes no pedal edema and Yes normal gait Psych Appearance: well kempt Mental Status: mental status grossly normal Speech and movement: Normal speech and movement present Affect: normal affect Coding Level of Care Code Est Pt Prev Care >65y(96788) Diagnoses Annual visit for general adult medical examination with abnormal findings Z00.01 Scalp psoriasis L40.9 Psoriasis L40.9 Osteopenia of left femoral neck M85.852 Dyslipidemia E78.5 Essential hypertension I10 Left hip pain M25.552 Additional Codes ERICKA-7 Assessment Billing - ERICKA-7 Assessment Tool: ERICKA-7 Assessment 76927 ([id number]) PHQ-9 - 65235 - PHQ-9 Billing: Yes ([id number]) Assessment & Plan Assessment & Plan (1) Annual visit for general adult medical examination with abnormal findings: Code(s): Z00.01 - Encounter for general adult medical examination with abnormal findings Plan: Her last lipid panel a year ago showed elevated total and LDL cholesterol. She has also gained weight. Comprehensive lab work will be ordered, including a fasting lipid panel, CBC, complete metabolic panel, vitamin D, and TSH, to be performed one week after starting lisinopril. The patient is fasting today, but labs are deferred to monitor the effect of the new medication. She will continue her vitamin D 2,000 units daily. Results of her recent Pap smear will be requested from her [employer] provider. A follow-up bone density scan is due in two years. Discussion was held regarding her family history of colon cancer, and she will proceed with a colonoscopy at age 78. Reminded to get her COVID booster and flu vaccine, up-to-date with her shingles vaccination declined pneumonia vaccine at present (2) Scalp psoriasis: Comment: She sees Dr. Ken Amezcua Code(s): L40.9 - Psoriasis, unspecified Category: Medical Plan: Followed by Dr. Amezcua using clobetasol and Zoryve solution (3) Psoriasis: Comment: On left elbow, sees Dr. Amezcua Code(s): L40.9 - Psoriasis, unspecified Category: Medical Plan: Followed by Dr. Amezcua, on Zoryve solution (4) Osteopenia of left femoral neck: Code(s): M85.852 - Other specified disorders of bone density and structure, left thigh Category: Medical Plan: Can taking vitamin-D 3 supplements and take adequate calcium from dietary sources. Do regular weight-bearing exercise, repeat another bone density scan in 2 years (5) Dyslipidemia: Code(s): E78.5 - Hyperlipidemia, unspecified Category: Medical Plan: Continue with vitamin-D 3 supplements and adequate calcium from dietary sources, repeat bone density scan to be done in 2 years (6) Essential hypertension: Code(s): I10 - Essential (primary) hypertension Category: Medical Plan: Her blood pressure is significantly elevated at 160/90 mmHg and 170 mmHg on recheck. Given the persistent elevation and family history, initiation of antihypertensive therapy is warranted. Will start lisinopril 5 mg daily. The patient was counseled on potential side effects, such as a dry cough or rash, and instructed to stop the medication if they occur. Recommended a low-salt diet. A nurse visit is scheduled in two weeks for a blood pressure check. Lab work, including kidney function and electrolytes, will be done one week after starting lisinopril. (7) Left hip pain: Code(s): M25.552 - Pain in left hip Category: Medical Plan: The patient presents with a two-month history of burning left hip pain, worse at night and with walking. The pain is suggestive of a pinched nerve. Shingles and bursitis are less likely. An X-ray of the left hip will be obtained today to evaluate for bone spurs or other osseous abnormalities. A referral to orthopedics will be placed for further evaluation. An MRI may be necessary but will follow the X-ray and orthopedic consultation. Plan patient was informed and verbally consented to the use of an ambient scribe for clinic note documentation during this visit. Orders: Orders Vitamin D 25-OH Total 06/12/25 E78.5 - Hyperlipidemia, unspecified, I10 - Essential (primary) hypertension, L40.9 - Psoriasis, unspecified, M85.852 - Other specified disorders of bone density and structure, left thigh, Z78.0 - Asymptomatic menopausal state Complete Blood Count Auto Diff 06/12/25 E78.5 - Hyperlipidemia, unspecified, I10 - Essential (primary) hypertension, L40.9 - Psoriasis, unspecified, M85.852 - Other specified disorders of bone density and structure, left thigh, Z78.0 - Asymptomatic menopausal state TSH reflex Free T4 06/12/25 E78.5 - Hyperlipidemia, unspecified, I10 - Essential (primary) hypertension, L40.9 - Psoriasis, unspecified, M85.852 - Other specified disorders of bone density and structure, left thigh, Z78.0 - Asymptomatic menopausal state Lipid Panel 06/12/25 E78.5 - Hyperlipidemia, unspecified, I10 - Essential (primary) hypertension, L40.9 - Psoriasis, unspecified, M85.852 - Other specified disorders of bone density and structure, left thigh, Z78.0 - Asymptomatic menopausal state Aspartate Amino Transferase 06/12/25 E78.5 - Hyperlipidemia, unspecified, I10 - Essential (primary) hypertension, L40.9 - Psoriasis, unspecified, M85.852 - Other specified disorders of bone density and structure, left thigh, Z78.0 - Asymptomatic menopausal state Alanine Aminotransferase 06/12/25 E78.5 - Hyperlipidemia, unspecified, I10 - Essential (primary) hypertension, L40.9 - Psoriasis, unspecified, M85.852 - Other specified disorders of bone density and structure, left thigh, Z78.0 - Asymptomatic menopausal state Basic Metabolic Panel Fasting 06/12/25 E78.5 - Hyperlipidemia, unspecified, I10 - Essential (primary) hypertension, L40.9 - Psoriasis, unspecified, M85.852 - Other specified disorders of bone density and structure, left thigh, Z78.0 - Asymptomatic menopausal state XR hip LT min 2V 06/12/25 E78.5 - Hyperlipidemia, unspecified, M25.552 - Pain in left hip Referrals Orthopedics Referral M25.552 - Pain in left hip Medications: New lisinopril 5 mg PO DAILY 30 tabs 1RF
[2025-06-12 10:33] VITALS: BP 160/90; PULSE 75; RESP 16; TEMP 37; O2SAT 97; BMI 31.6
== END 2025-06-12 11:49 | disposition home or self-care (01) ==
LOC: HO.HMCC 10:16
PROVIDERS: PCP Internal Medicine; Visit Provider Internal Medicine
DX: Z00.01 Encounter for general adult medical examination with abnormal findings (principal); L40.9 Psoriasis, unspecified; M85.852 Other specified disorders of bone density and structure, left thigh; E78.5 Hyperlipidemia, unspecified; I10 Essential (primary) hypertension; M25.552 Pain in left hip

== ENCOUNTER 2025-06-12 10:15 | Outpatient (REF) | payer MEDICARE, SELFPAY ==
--- NOTE | ~2025-06-12 | XR_ITS ---
EXAMINATION: XR HIP, LEFT CLINICAL INFORMATION: M25.552 - Pain in left hip COMPARISON: None available. TECHNIQUE: Two views of the left hip. FINDINGS: Enthesophytes are present involving the left greater trochanter. There is mild narrowing of the superior lateral joint space and small marginal osteophytes involving acetabular roof and femoral head. Minimal enthesophytes are evident the left ischial tuberosity. XR/XR hip LT min 2V IMPRESSION: Mild left hip osteoarthritis Electronically signed by: Ata Vincent MD 06/12/2025 01:30 PM DA CEDENO
== END 2025-06-12 10:16 | disposition home or self-care (01) ==
LOC: HO.HMGCX 10:15
PROVIDERS: PCP Internal Medicine; Visit Provider Internal Medicine
DX: Z00.01 Encounter for general adult medical examination with abnormal findings (principal); M25.552 Pain in left hip; E78.5 Hyperlipidemia, unspecified; L40.9 Psoriasis, unspecified; M85.852 Other specified disorders of bone density and structure, left thigh; I10 Essential (primary) hypertension
CPT/HCPCS: 73502; 96127; 99397

== ENCOUNTER → 2025-06-12 11:38 | Outpatient (BNV) | payer MEDICARE, SELFPAY | PROVIDERS: PCP Internal Medicine; Visit Provider Radiology Diagnostic Radiology | DX: M16.12 Unilateral primary osteoarthritis, left hip (principal) | CPT/HCPCS: 73502 ==

== ENCOUNTER 2025-06-26 09:27 | Outpatient (REF) | payer MEDICARE, SELFPAY ==
[2025-06-26 13:59] LABS: MANUAL DIFF FLAG NO
[2025-06-26 14:10] LABS: Hematocrit 45.9 % (37.0-47.0); Hemoglobin 15.5 g/dl (12.0-16.0); Imm Gran Abs Auto 0.01 X10*3/uL (0.00-0.03); Imm Gran Pct Auto 0.2 % (0.0-0.4); Lymphocytes Absolute Auto 1.5 X10*3/uL (1.2-4.9); Mean Corpuscular HGB Conc 33.8 g/dl (31.0-35.0); Mean Corpuscular Hemoglobin 34.9 pg (27.0-33.0); Mean Corpuscular Volume 103.4 fL (80.0-98.0); NRBC Abs Auto 0.000 X10*3/uL (0.0-0.012); NRBC Pct Auto 0.0 /100WBC (0.0-0.2); Platelet Count 194 X10*3/uL (160-400); Red Blood Count 4.44 X10*6/uL (4.20-5.50); White Blood Count 4.7 X10*3/uL (4.8-10.8)
[2025-06-26 15:04] LABS: Alanine Aminotransferase 34 U/L (0-31); Anion Gap 16 (12-20); Aspartate Amino Transferase 34 U/L (5-31); Blood Urea Nitrogen 13 mg/dL (9-16); Calcium 9.2 mg/dL (8.4-10.2); Carbon Dioxide 28 mmol/L (22-29); Chloride 105 mmol/L (96-108); Cholesterol 240 mg/dL (<200); Estimated Glomerular Filt Rate > 60; HDL Cholesterol 94 mg/dL (>40); Potassium 4.5 mmol/L (3.3-5.1); Sodium 144 mmol/L (135-145); Triglycerides 72 mg/dL (<150)
== END 2025-06-26 09:28 | disposition home or self-care (01) ==
LOC: HO.HMGCLDS 09:27
PROVIDERS: PCP Internal Medicine; Visit Provider Internal Medicine
DX: M85.852 Other specified disorders of bone density and structure, left thigh (principal); E78.5 Hyperlipidemia, unspecified; L40.9 Psoriasis, unspecified; I10 Essential (primary) hypertension; Z78.0 Asymptomatic menopausal state
CPT/HCPCS: 36415; 80048; 80061; 82306; 84443; 84450; 84460; 85025